=== PATIENT | female | born 1985 | race Caucasian/White ===

== ENCOUNTER 2020-11-17 00:26 | Emergency (ER) | payer OTHER, BC ==
[~2020-11-17] VITALS: Ht 172.7 cm; Wt 86.2 kg
[2020-11-17 00:26] VITALS: BP 143/76
--- NOTE | 2020-11-17 00:26 | NUR ---
see complete assessment
[2020-11-17] MEDS ORDERED: MORPHINE SULFATE 2 MG/ML SYR IVP ONE (00:35)
--- NOTE | 2020-11-17 00:35 | NUR ---
patient to bed 11
--- NOTE | 2020-11-17 00:36 | NUR ---
patient ambulated to the bathroom for urine collection
[2020-11-17 01:03] LABS: BASOPHILS % (AUTO) 0.2 % (0.0-2.0); EOSINOPHILS % (AUTO) 0.3 % (0.0-4.0); HEMOGLOBIN 12.2 g/dL (12.0-16.0); LYMPHOCYTES # (AUTO) 1.6 K/uL (2.5-16.5); MEAN CORPUSCULAR HEMOGLOBIN 30 pg (27-31); MEAN CORPUSCULAR HGB CONC 33 g/dL (33-37); MEAN CORPUSCULAR VOLUME 89.7 fL (80-94); MONOCYTES # (AUTO) 0.4 K/uL (0.8-1.0); MONOCYTES % (AUTO) 4.6 % (1.7-9.3); NEUTROPHILS % (AUTO) 76.9 % (42.2-75.2); PLATELET COUNT (AUTO) 299 K/uL (140-450); RED BLOOD CELL COUNT(AUTO) 4.12 MIL/uL (4.20-5.40); RED CELL DISTRIBUTION WIDTH 13.7 % (11.6-13.7); WHITE BLOOD COUNT (AUTO) 9.1 K/uL (4.8-10.8)
[2020-11-17 01:22] LABS: ALBUMIN 3.8 g/dL (3.4-5.0); ANION GAP 12.9 (8-16); CARBON DIOXIDE 24.7 mmol/L (21-32); CREATININE 0.7 mg/dL (0.6-1.3); POTASSIUM 3.6 mmol/L (3.5-5.1); TOTAL BILIRUBIN 0.9 mg/dL (0.0-1.0)
--- NOTE | 2020-11-17 01:24 | NUR ---
CALLED CT TO TAKE PATIENT AWAY-- NO ANSWER AT THIS TIME
--- NOTE | 2020-11-17 01:36 | NUR ---
patient to CT via w/c
--- NOTE | 2020-11-17 03:40 | NUR ---
ALL RESULTS WAS BACK AND NOTED BY ERMD AND FOR D/C.
[2020-11-17 04:10] LABS: BARBITURATE, URINE NEGATIVE ng/ml (NEG <=200); BENZODIAZEPINE, URINE NEGATIVE ng/mL (NEG <=200); CANNABINOID, URINE NEGATIVE ng/mL (NEG <=50); COCAINE, URINE NEGATIVE ng/mL (NEG <=300); OPIATE, URINE NEGATIVE ng/mL (NEG <=2000); PHENCYCLIDINE SCREEN,URINE NEGATIVE ng/mL (NEG <=25)
[2020-11-17] MEDS ORDERED: IBUP-1842 PO (04:11)
--- NOTE | 2020-11-17 04:30 | NUR ---
IV removed, catheter intact and site benign. Applied folded 4x4 gauze and tape to stop bleeding.
--- NOTE | 2020-11-17 04:35 | NUR ---
[facility] WAS CALLED BY [facility] AND PER DISPATCH SABRINA WAS CITED AND RELEASED BY OFFICER LAUREEN ARORA # [id number].
[2020-11-17 04:53] VITALS: BP 131/81
== END 2020-11-17 04:53 | disposition home or self-care (01) ==
LOC: MED 00:26
DX: Z02.89 Encounter for other administrative examinations (principal); S20.219A Contusion of unspecified front wall of thorax, initial encounter; F10.129 Alcohol abuse with intoxication, unspecified; R51.9 Headache, unspecified; M54.2 Cervicalgia; Z79.1 Long term (current) use of non-steroidal anti-inflammatories (NSAID); Y90.6 Blood alcohol level of 120-199 mg/100 ml; V89.2XXA Person injured in unspecified motor-vehicle accident, traffic, initial encounter; Y93.89 Activity, other specified; Y92.410 Unspecified street and highway as the place of occurrence of the external cause; Y99.8 Other external cause status
CPT/HCPCS: 36415; 70450; 71260; 72125; 74177; 80053; 80305; 81025; 83690; 85025; 96374; 99285; G0482; J2270; Q9967